=== PATIENT | male | born 1975 | race Caucasian/White ===

== ENCOUNTER 2017-03-24 06:14 | Day surgery (SDC) | payer OTHER ==
[~2017-03-24] VITALS: Ht 172.7 cm; Wt 70.5 kg
[~2017-03-24 06:14] MED LIST: [UNRECOGNIZED DRUG - CODE] PO
[2017-03-24] MEDS ORDERED: SODIUM CHLORIDE 0.9% 1,000 ML IV ONE ×2 (06:40→07:00)
[2017-03-24] MEDS ORDERED: MONT10TA21 PO (06:49)
[2017-03-24] MEDS ORDERED: FAMO20 PO (06:49)
[2017-03-24] MEDS ORDERED: FentaNYL CITRATE-PF 100 MCG/2 ML VIAL ONE (07:20)
[2017-03-24] MEDS ORDERED: MIDAZOLAM HCL 2 MG/2 ML VIAL ONE (07:20)
[2017-03-24] MEDS ORDERED: MethylPREDNISolone SOD SUCC 125 MG/2 ML VIAL IVP ONE (08:45)
[2017-03-24] MEDS ORDERED: MethylPREDNISolone SOD SUCC 125 MG/2 ML VIAL ONE (09:03)
[2017-03-24] MEDS ORDERED: LIDOCAINE HCL 2% 30 ML JELLY TP ONE (16:51)
[2017-03-24] MEDS ORDERED: LIDOCAINE HCL 4% 50 ML SOLUTION TP ONE (16:51)
[2017-03-24] MEDS ORDERED: BENZOCAINE 20% 50 MCG/SPRAY 57 GM TP ONE (16:51)
[2017-03-24] MEDS ORDERED: ALBUTEROL SULFATE 2.5 MG/0.5 ML NEB SOLUTION NEB ONE (16:51)
[2017-03-24] MEDS ORDERED: OXYGEN THERAPY IH SCH (20:00)
== END 2017-03-24 10:10 | disposition home or self-care (01) ==
LOC: SURGERY 06:14
PROVIDERS: ATTEND Internal Medicine Critical Care Medicine
DX: J38.4 Edema of larynx (principal); B37.0 Candidal stomatitis; M54.9 Dorsalgia, unspecified
CPT/HCPCS: 31623; 31624; 71010; 87015 ×2; 87070; 87101; 87147; 87205; 87220; 88108; 88312; J2250; J2930; J3010; J7030; 31622